=== PATIENT | male | born 1985 | race Caucasian/White ===

== ENCOUNTER 2023-02-03 16:10 | Emergency (ER) | payer SELFPAY ==
[2023-02-03] VITALS (8 sets, daily range): BP systolic 128–150; BP diastolic 71–90; PULSE 50–62; RESP 12–18; TEMP 36.3; O2SAT 97–100
--- NOTE | ~2023-02-03 | CT_ITS ---
EXAMINATION: CT abdomen pelvis w con DATE: 02/03/2023 18:16 INDICATION: RLQ/RUQ abd pain, N/V, leukocytosis TECHNIQUE: Computed tomography (CT) of the abdomen and pelvis was performed with 100 mL Omnipaque-350 intravenous contrast. Automated exposure control and iterative reconstruction technique were employe d. The dose-length product was 1470.12 mGy-cm. COMPARISON: None. FINDINGS: Lower thorax: Unremarkable Liver: Normal. Biliary/Gallbladder: Gallbladder is normal. No bile duct dilation. Pancreas: No mass or duct dilation. Spleen: Normal. Adrenals:No mass. Kidneys: No mass, stone, or hydronephrosis. GI tract: No small or large bowel dilation. Colonic submucosal fat as can be seen with chronic IBD, o besity, chemotherapy treatment, and celiac disease. Normal appendix. Mild diverticulosis without div erticulitis. Mesentery/Peritoneum: No ascites, mass, or free air. Retroperitoneum: No mass. Pelvis: Pelvic organs are within normal limits. Soft Tissues: Soft tissues and body wall unremarkable. Bones: No acute osseous finding. IMPRESSION: No acute abdominopelvic process detected. Reviewed, dictated and finalized at location K.
[2023-02-03 16:37] LABS: Basophils Percent Auto 0.1 % (0.2-1.2); Hematocrit 49.4 % (42.0-52.0); Hemoglobin 16.7 g/dL (14.0-18.0); Immature Granulocyte Absolute 0.08 K/mm3 (0.00-0.031); Immature Granulocyte Percent A 0.5 % (0-0.5); Lymphocytes Absolute Auto 1.01 K/mm3 (0.9-3.2); Lymphocytes Percent Auto 6.2 % (18.3-44.2); Mean Corpuscular HGB Conc 33.8 g/dl (32-36); Mean Corpuscular Hemoglobin 31.5 pg (26-34); Mean Platelet Volume 11.8 fl (7.4-10.4); Monocytes Absolute Auto 0.3 K/mm3 (0.1-0.6); Monocytes Percent Auto 1.8 % (2.6-8.5); Neutrophils Absolute Auto 14.8 K/mm3 (1.3-6.7); Neutrophils Percent Auto 91.4 % (45.5-73.1); Platelet Count Result 249 k/mm3 (150-375); Red Blood Count 5.31 M/mm3 (4.6-6.20); White Blood Count 16.2 K/mm3 (4.5-10.0)
[2023-02-03 16:40] LABS: Appearance Urine Clear (Clear); Bacteria Urine None Seen /hpf; Bilirubin Urine Negative (Negative); Blood Urine Negative (Negative); Color Urine Yellow (Yellow); Glucose Urine UA Negative (Negative); Ketones Urine 1+ mg/dL (Negative); Leukocyte Esterase Ur Negative LEU/UL (Negative); Nitrate Urine Negative (Negative); Non Pathogenic Casts 0-2; Protein Urine 1+ mg/dL (Negative); RBC Urine 0-2 /hpf (0-2); Squamous Epithelial Cell Urine None seen /hpf (Few); WBC Urine 0-5 /hpf
[2023-02-03 16:43] LABS: Specific Grav Ur 1.036 (1.001-1.035)
[2023-02-03 16:44] LABS: Add Urine Microscopic? YES
[2023-02-03 16:57] LABS: Alanine Aminotransferase 56 U/L (6-50); Albumin Level 5.1 g/dL (3.5-5.1); Alkaline Phosphatase 74 U/L (38-126); Anion Gap 17 mmol/L (8-16); Aspartate Amino Transferase 31 U/L (17-59); Bilirubin,Total 0.7 mg/dL (0.2-1.3); Blood Urea Nitrogen 11 mg/dL (9-20); Calcium 9.8 mg/dL (8.4-10.2); Carbon Dioxide 21 mmol/L (22-30); Chloride 101 mmol/L (98-107); Estimated CRCL calculation 147 ml/min; Estimated Glomerular Filt Rate > 60; Glucose 138 mg/dL (65-110); Lipase 34 U/L (23-300); Potassium 4.4 mmol/L (3.4-5.0); Sodium 139 mmol/L (137-145)
--- NOTE | 2023-02-03 17:27 | PC.NURSE ---
pt off the floor at 1727 to get imaging done.
--- NOTE | 2023-02-03 17:40 | ED.NAVMDI ---
HPI - Nausea/Vomiting/Diarrhea General Chief complaint: Nausea/Vomiting/Diarrhea Stated complaint: Vomitting, abdominal pain Time Seen by Provider: 02/03/23 17:18 Source: patient Mode of arrival: ambulatory Limitations: no limitations History of Present Illness HPI Narrative: Patient is a 37 y/o male who presents to the ED with c/o abdominal pain. Patient reports he developed pain in his lower abdomen yesterday morning after waking up for work. He had a bowel movement and vomited twice and pain improved. Patient then woke up again this morning around 3:30 AM with recurrent pain in his lower abdomen. He states pain was more intense. He again had a bowel movement and began vomiting, but denied improvement in pain. He notes he vomited several times. Pain has been constant since then. He states pain initially felt lower in his abdomen, but is now more present in his mid and upper R sided abdomen. He was unable to take anything further for the pain d/t the vomiting. He also reports chills/sweats, denies known fever. Denies diarrhea, rectal bleeding, melena, urinary sx's. Related Data Allergies Allergy/AdvReac Type Severity Reaction Status Date / Time No Known Allergies Allergy Verified 02/03/23 17:50 Review of Systems Review of Systems: CONSTITUTIONAL: See HPI. CARDIOVASCULAR: Denies chest pain. RESPIRATORY: Denies dyspnea. GASTROINTESTINAL: See HPI. GENITOURINARY: Denies dysuria or hematuria. MUSCULOSKELETAL: Denies back pain, joint pain, or myalgia. NEUROLOGIC: Denies headache, numbness, or weakness. All systems reviewed & are unremarkable except as noted in HPI and below Exam Narrative: GENERAL: Uncomfortable appearing, obese with BMI of 34.4, non-toxic, in mild acute distress d/t pain. HEAD: Normocephalic, atraumatic. EYES: PERRLA, R strabismus. NECK: Supple. No adenopathy, no masses. RESPIRATORY: Airway patent, respirations nonlabored. Clear to auscultation bilaterally, no rales, rhonchi, wheezing. CARDIOVASCULAR: Regular rate and rhythm without murmurs, rubs, or gallops. Peripheral pulses 2+ and equal bilaterally. ABDOMINAL: Soft, TTP in RUQ, epigastric region, periumbilical region, RLQ. Nondistended, no hepatosplenomegaly. Normoactive BS. MUSCULOSKELETAL: Moves all extremities. Strength/ROM intact without gross deformities. SKIN: Warm, dry, normal color. No rashes. NEURO: A&O X3. Speech clear. Cranial nerves II-XII grossly intact. Steady gait. No ataxic movements. PSYCHIATRIC: Appropriate mood and affect. Normal interaction. Course Vital Signs Vital signs: Vital Signs Temperature 97.4 F L 02/03/23 16:20 Pulse Rate 50 L 02/03/23 16:20 Respiratory Rate 18 02/03/23 16:20 Blood Pressure 128/86 02/03/23 16:20 Pulse Oximetry 100 02/03/23 16:20 Oxygen Delivery Room Air 02/03/23 16:20 Temperature 97.4 F L 02/03/23 16:20 Pulse Rate 61 02/03/23 20:14 Respiratory Rate 12 02/03/23 20:14 Blood Pressure 132/72 02/03/23 20:14 Pulse Oximetry 99 02/03/23 20:14 Oxygen Delivery Room Air 02/03/23 17:44 MDM - Nausea/Vomiting/Diarrhea MDM Narrative Medical decision making narrative: Patient presented to ED with 2-day history of N/V and abdominal pain, initially lower, now extending to upper abdomen/RUQ/epigastric region. Vital stable upon arrival. Afebrile. CBC with leukocytosis of 16.2. Neutrophil predominance. No bandemia. CMP with bicarb slightly low at 21, anion gap of 17, stable kidney function, blood glucose 138. Patient without history of diabetes mellitus. Urine with 1+ketones, though likely related to dehydration as patient has been unable to keep anything down today. Urinalysis otherwise without signs of infection. CT scan of abdomen pelvis obtained and w/o acute findings. Patient was updated on lab and imaging findings. Given 2 L of fluid in the ED in addition to pain and nausea medicine. On reevaluation, patient feeling better but report heartburn/indigestion. EKG
[2023-02-03] MEDS: SODIUM CHLORIDE 0.9% IV 1,000 ML 999 ML IV CONT ×2 (17:55→20:11)
[2023-02-03] MEDS: ONDANSETRON INJ 4 MG/2 ML VIAL IV PUSH (17:55)
[2023-02-03] MEDS: MORPHINE SULFATE (*CRX) 4 MG/ML INJ IV PUSH (17:55)
--- NOTE | 2023-02-03 18:05 | PC.NURSE ---
pt off floor to CT @2829
--- NOTE | 2023-02-03 19:18 | ECG_ITS ---
Measurements Intervals Mcloud Rate: 55 P: 46 OR: 144 QRS: -28 QRSD: 102 T: 34 QT: 398 QTc: 381 Interpretive Statements SINUS BRADYCARDIA WITH SINUS ARRHYTHMIA INCOMPLETE RIGHT BUNDLE BRANCH BLOCK BASELINE ARTIFACT- I, II, III, AVR, AVL, AVF BORDERLINE ECG NO PREVIOUS ECG AVAILABLE FOR COMPARISON Electronically Signed On 02-04-2023 7:59:41 CDT by Armin Sapp D.O.
[2023-02-03] MEDS: BELLADONNA ALK/PHENOB ELIX 10 ML, MAG HYDROX/ALUMINUM HYD/SIMETH 30 ML, LIDOCAINE HCL 2... PO (20:11)
[2023-02-03] MEDS: PANTOPRAZOLE SODIUM IV 40 MG VIAL IV PUSH (20:11)
[2023-02-03 20:29] LABS: Troponin I < 0.012 ng/mL (0.000-0.034)
== END 2023-02-03 20:50 | disposition home or self-care (01) ==
PROVIDERS: Emergency Medicine; Emergency Provider Physician Assistant
DX: K29.00 Acute gastritis without bleeding (principal); R11.2 Nausea with vomiting, unspecified; R00.1 Bradycardia, unspecified
CPT/HCPCS: 36415; 74177; 80053; 81001; 83690; 84484; 85025; 93005; 96361; 96374; 96375; 99284; A9270; C9113; J2270; J2405; J7030; Q9967

== ENCOUNTER 2023-02-06 07:37 | Emergency (ER) | payer SELFPAY ==
--- NOTE | ~2023-02-06 | CT_ITS ---
EXAMINATION: CTA chest abdomen pelvis DATE: 02/06/2023 09:09 INDICATION: Abdominal pain radiating to the chest and back. Nausea and vomiting. TECHNIQUE: Computed tomographic angiography (CTA) of the chest, abdomen, and pelvis was performed wit h 100 mL Omnipaque-350 intravenous contrast. Automated exposure control and iterative reconstruction technique were employed. The dose-length product was 1606.26 mGy-cm. Maximum intensity projection 3D- reconstructions of the aorta and other arteries were constructed by the technologist on a separate wo rkstation. COMPARISON: CT abdomen and pelvis 02/03/2023 FINDINGS: CHEST CTA: The lungs demonstrate mild dependent atelectasis. No pleural effusion. The heart size is normal. No p ericardial effusion. Thoracic aorta is normal. There is mild thoracic spondylosis. ABDOMEN AND PELVIS CTA: The liver, gallbladder, spleen, pancreas, adrenal glands, and kidneys are normal. There is diverticul osis of the colon without evidence of diverticulitis. There are no dilated loops of bowel. The append ix is normal. Abdominal aorta is normal. There is no significant stenosis of celiac axis, superior me senteric artery, the renal arteries, or inferior mesenteric artery. There are no pathologically enlar ged lymph nodes. There is no free intraperitoneal fluid. There is mild lumbar spondylosis. There is a benign bone island in L1 vertebral body. IMPRESSION: 1. Normal aorta. Reviewed, dictated and finalized at location A. IMPRESSION: 1. Normal aorta.
[2023-02-06 07:40] VITALS: BP 150/98; PULSE 68; RESP 20; TEMP 36.2; O2SAT 100
[2023-02-06] MEDS: diphenhydrAMINE HCl INJ 50 MG/ML VIAL 25 MG IV PUSH (08:08)
[2023-02-06 08:09] LABS: Basophils Percent Auto 0.3 % (0.2-1.2); Eosinophils Absolute Auto 0.1 K/mm3 (0-0.3); Eosinophils Percent Auto 0.6 % (0-4.4); Hematocrit 46.9 % (42.0-52.0); Hemoglobin 16.1 g/dL (14.0-18.0); Immature Granulocyte Absolute 0.03 K/mm3 (0.00-0.031); Immature Granulocyte Percent A 0.3 % (0-0.5); Lymphocytes Absolute Auto 1.95 K/mm3 (0.9-3.2); Lymphocytes Percent Auto 17.9 % (18.3-44.2); Mean Corpuscular HGB Conc 34.3 g/dl (32-36); Mean Corpuscular Hemoglobin 31.4 pg (26-34); Mean Corpuscular Volume 91.6 fl (80-100); Mean Platelet Volume 11.8 fl (7.4-10.4); Monocytes Absolute Auto 0.8 K/mm3 (0.1-0.6); Monocytes Percent Auto 7.4 % (2.6-8.5); Neutrophils Percent Auto 73.5 % (45.5-73.1); Platelet Count Result 231 k/mm3 (150-375); Red Blood Count 5.12 M/mm3 (4.6-6.20); Red Cell Distribution Width 12.9 % (11.5-14.5); White Blood Count 10.9 K/mm3 (4.5-10.0)
[2023-02-06] MEDS: METOCLOPRAMIDE HCL INJ 10 MG/2 ML VIAL IV PUSH (08:09)
--- NOTE | 2023-02-06 08:27 | ED.ABDPAIN ---
HPI - Abdominal Pain General Chief Complaint: Abdominal Pain Stated Complaint: abd pain Time Seen by Provider: 02/06/23 07:39 History of Present Illness HPI narrative: Patient presenting with abdominal pain, he had a similar episode several days ago and had felt better for a few days, discharged with omeprazole and Zofran, however this morning woke up around 5 this morning for work and was having severe pain mostly in the periumbilical area that seems to radiate up to his chest, and a generalized feeling of weakness to the point where he felt like his legs were going to go out under him, with nausea. States he feels like he just cannot get quite comfortable. No focal numbness or weakness anywhere. States he has a family history of colon cancer. Related Data Allergies Allergy/AdvReac Type Severity Reaction Status Date / Time No Known Allergies Allergy Verified 02/06/23 07:45 Review of Systems Review of Systems: CONST: Malaise and generalized weakness HEENT: No sore throat C/V: No chest pain RESP: No cough GI: Reports abdominal pain, nausea : No dysuria. M/S: No joint pain. SKIN: No rash. NEURO: [No headache or focal numbness or weakness] PSYCH: Anxious Exam Narrative: EXAMINATION OF ORGAN SYSTEMS/BODY AREAS: Constitutional: Vital signs per nursing GENERAL: Appears quite anxious and uncomfortable in the bed HEAD: Normal with no signs of head trauma. EYES: EOMI, conjunctiva normal ENT: Hearing grossly intact LUNGS: Nonlabored breathing. HEART: [Regular rate and rhythm] ABD: [Soft], [very minimally tender to deep palpation] epigastric abdomen EXT: Normal range of motion, normal radial and DP pulses bilaterally SKIN: [No rashes or lesions.] NEURO: [Alert and oriented x 3. No gross focal sensory or strength deficits.] PSYCH: Anxious affect Course Vital Signs Vital signs: Vital Signs Temperature 97.2 F L 02/06/23 07:40 Pulse Rate 68 02/06/23 07:40 Respiratory Rate 20 02/06/23 07:40 Blood Pressure 150/98 H 02/06/23 07:40 Pulse Oximetry 100 02/06/23 07:40 Oxygen Delivery Room Air 02/06/23 07:40 Temperature 97.2 F L 02/06/23 07:40 Pulse Rate 69 02/06/23 12:03 Respiratory Rate 18 02/06/23 12:03 Blood Pressure 156/95 H 02/06/23 12:03 Pulse Oximetry 98 02/06/23 12:03 Oxygen Delivery Room Air 02/06/23 07:40 MDM - Abdominal Pain MDM Narrative Medical decision making narrative: Electronic medical record was reviewed. Patient presented to the ED with complaint of [abdominal pain and vomiting and generalized weakness]. Vitals [were within acceptable limits]. Physical exam revealed soft, minimal tenderness to palpation epigastric abdomen, and very anxious appearing patient, with no neurovascular deficits. Based on the patient's history and physical exam, my differential includes but is not limited to [gastritis, gastroenteritis, cholecystitis, pancreatitis, appendicitis, considered aortic catastrophe given his inability to lay still, as well as cannabinol hyperemesis, he did report that he had used marijuana yesterday for nausea and had felt better afterwards and that he does use it several times a week]. [IV access was established by nursing staff. Patient was given reglan, benadryl]. CBC, BMP, lipase, LFTs, bilirubin and alk phos were obtained. Labs were pertinent for white count very minimally elevated, otherwise normal labs and normal troponin. [Decision was made to obtain a CTA-chest/abdomen/pelvis to evaluate for acute abdominal process. Per radiology interpretation is unremarkable for acute intra-abdominal process.] On reevaluation, the patient states that they are feeling much better. There were no witnessed episodes of vomiting in the emergency department. They are not complaining of any new abdominal pain. Repeat examination did not show any significant guarding or rebound. No new tenderness. At this time I do not feel there is any further emergent treatment to be provi
[2023-02-06 08:33] LABS: Alanine Aminotransferase 39 U/L (6-50); Albumin Level 4.7 g/dL (3.5-5.1); Alkaline Phosphatase 73 U/L (38-126); Anion Gap 9 mmol/L (8-16); Aspartate Amino Transferase 25 U/L (17-59); Blood Urea Nitrogen 12 mg/dL (9-20); Calcium 9.3 mg/dL (8.4-10.2); Carbon Dioxide 25 mmol/L (22-30); Chloride 104 mmol/L (98-107); Estimated CRCL calculation 119 ml/min; Estimated Glomerular Filt Rate > 60; Glucose 107 mg/dL (65-110); Lipase 69 U/L (23-300); Potassium 4.3 mmol/L (3.4-5.0); Sodium 138 mmol/L (137-145)
[2023-02-06 08:44] LABS: Troponin I < 0.012 ng/mL (0.000-0.034)
[2023-02-06] MEDS: PANTOPRAZOLE SODIUM IV 40 MG VIAL IV PUSH (09:41)
[2023-02-06] MEDS: FAMOTIDINE 20 MG/2 ML VIAL IV PUSH (09:42)
[2023-02-06] MEDS: LACTATED RINGERS 1,000 ML 999 ML IV CONT (09:42)
[2023-02-06 10:00] VITALS: BP 140/93; PULSE 70; RESP 16; O2SAT 100
[2023-02-06 12:03] VITALS: BP 156/95; PULSE 69; RESP 18; O2SAT 98
== END 2023-02-06 12:05 | disposition home or self-care (01) ==
PROVIDERS: Emergency Provider Emergency Medicine
DX: R10.33 Periumbilical pain (principal); R11.2 Nausea with vomiting, unspecified
CPT/HCPCS: 36415; 71275; 74174; 80053; 83690; 84484; 85025; 96361; 96374; 96375; 99284; C9113; J1200; J2765; J7120; Q9967

== ENCOUNTER 2024-11-26 15:30 | Emergency (ER) | payer OTHER, SELFPAY ==
--- NOTE | ~2024-11-26 | CT_ITS ---
CT abdomen pelvis w con Ordering provider: Kulwant Alcazar MD History: 39 years Male with . diffuse abd pain . Comparison: None. Technique: CT abdomen and pelvis with IV and without oral contrast. Automated exposure control and it erative reconstruction technique were employed. The dose-length product was 1172.44 mGy-cm. 100 mL Om nipaque 350 was given IV. Findings: VISUALIZED LOWER CHEST: Dependent atelectatic changes. UPPER ABDOMINAL ORGANS: Liver: Hepatomegaly with fat infiltration. Gallbladder: Normal. Spleen: Normal. Stomach/duodenum: Normal. Pancreas: Normal. Adrenals: Normal. Kidneys: Normal. PELVIC ORGANS: The bladder is normal. BOWEL AND MESENTERY: Colon: Mild sigmoid diverticulosis without diverticulitis. Normal appendix. Small Bowel: Normal. No obstruction. Peritoneum/mesentery: No free air or free fluid. No mesenteric lymphadenopathy. RETROPERITONEUM: Normal aorta. No retroperitoneal lymphadenopathy. MUSCULOSKELETAL: Superficial soft tissues: The superficial soft tissues are normal. Bones: Normal spine. Sclerotic area seen in L1 on the right side. Follow-up advised. Bilateral sacroi liitis. IMPRESSION: 1. No evidence of appendicitis, diverticulitis or intestinal obstruction. 2. Hepatomegaly with fat infiltration. Reviewed, dictated and finalized at location A.
[2024-11-26 15:43] VITALS: BP 143/79; PULSE 61; RESP 18; TEMP 36.6; O2SAT 100
--- NOTE | 2024-11-26 16:34 | ED_ITS ---
HPI - Abdominal Pain General Chief Complaint: Abdominal Pain Stated Complaint: abd pain Time Seen by Provider: 11/26/24 16:10 History of Present Illness HPI narrative: 39-year-old male presenting to the emergency department for diffuse abdominal pain for 1 week associated with some nausea and emesis when pain gets severe. States that he has had episodes like this previously most recently several weeks ago that was short-lived. He was here in the hospital 2 years ago with very similar findings and got CT scans, CT angiography scan and ultimately had no acute process in the abdomen pelvis and was attributed to potential marijuana use. Patient does smoke marijuana but no other drug use. No trauma or injuries. No diarrhea, fever, chills, back pain, chest pain shortness a breath. He states that hot showers seem to help with pain which is consistent with potential marijuana/cannabis hyperemesis. Related Data Allergies Allergy/AdvReac Type Severity Reaction Status Date / Time No Known Allergies Allergy Verified 02/06/23 07:45 Review of Systems 2 Review of Systems: As reviewed above in HPI Exam 2 Narrative: GENERAL: Uncomfortable but not any distress, awake and answers questions appropriately HEAD: [Normocephalic, atraumatic.] EYES: [PERRLA and EOMI.] ENT: Nares clear, no rhinorrhea or epistaxis. Mucous membranes moist. NECK: Supple. CHEST: [Clear to auscultation. No respiratory distress.] HEART: [Regular rate and rhythm]. No murmur heard. [Normal peripheral pulses.] ABDOMEN: [Soft, nondistended], [nontender], [No rigidity or guarding] EXTREMITIES: Normal range of motion. [No edema.] SKIN: Warm, dry, no rash. NEURO: [No focal deficits]. Alert and oriented [x3.] PSYCH: [Normal mood and affect.] Course Vital Signs Vital signs: Vital Signs Temperature 36.6 C 11/26/24 15:43 Pulse Rate 61 11/26/24 15:43 Respiratory Rate 18 11/26/24 15:43 Blood Pressure 143/79 H 11/26/24 15:43 Pulse Oximetry 100 11/26/24 15:43 Oxygen Delivery Room Air 11/26/24 15:43 Temperature 36.6 C 11/26/24 15:43 Pulse Rate 54 L 11/26/24 16:44 Respiratory Rate 15 11/26/24 16:44 Blood Pressure 138/85 11/26/24 16:44 Pulse Oximetry 100 11/26/24 16:44 Oxygen Delivery Room Air 11/26/24 15:43 MDM - Abdominal Pain MDM Narrative Medical decision making narrative: 39-year-old male presenting with diffuse abdominal pain for a week. Associated nausea when pain gets severe but no diarrhea, fever, chills, chest pain, shortness a breath. Abdomen is soft and nondistended, no significant tenderness to palpation. No rebound guarding. No overlying skin changes. Patient states that hot showers help his abdominal pain which is consistent with his clinical history and previous presentations for suspected cannabinoid hyperemesis. He has normal vital signs with any tachycardia, fever or hypoxia and combined with a soft nontender abdomen suspicion for intra-abdominal process is very low however will have to exclude something like appendicitis, cholecystitis, diverticulitis, obstruction. Most likely patient has gastroenteritis versus gastritis versus cannabinoid hyperemesis. Lactated Ringer's for fluid resuscitation as well as medications including Toradol, Haldol and diphenhydramine for symptom control. Laboratory studies were ordered including CBC, CMP, urinalysis, lipase. CT scan of the abdomen pelvis with IV contrast was obtained for further delineation. Workup shows a slight leukocytosis of 13.3 but no anemia or platelet concerns. Chemistry panel is within normal limits, normal renal function, normal hepatic function. Normal glucose. Urinalysis shows trace ketones but no acute findings otherwise. No infection or blood. CT scan shows hepatomegaly and fatty liver but no acute findings such as appendicitis diverticulitis or intestinal obstruction. Otherwise unremarkable CT scan. Patient had improvement after medications. He will be discharged home at this time with prescriptions for Bentyl and Zofran as needed. Encouraged to stop smoking marijuana and to follow-up on outpatient basis with his primary care provider for further evaluations as needed. Medical Records Attestation: I reviewed the patient's medical records. Lab Data Attestation: I reviewed the patient's lab results. 11/26/24 16:36 11/26/24 16:36 Labs: Lab Results 11/26/24 Range/Units 16:36 WBC 13.3 H (4.5-10.0) K/mm3 RBC 5.02 (4.6-6.20) M/mm3 Hgb 15.4 (14.0-18.0) g/dL Hct 45.8 (42.0-52.0) % MCV 91.2 (80-100) fl MCH 30.7 (26-34) pg MCHC 33.6 (32-36) g/dl RDW 12.8 (11.5-14.5) % Plt Count 194 (150-375) k/mm3 MPV 11.5 H (7.4-10.4) fl Immature Gran % (Auto) 0.4 (0-0.5) % Neut % (Auto) 74.3 H (45.5-73.1) % Lymph % (Auto) 18.4 (18.3-44.2) % Sutter % (Auto) 6.5 (2.6-8.5) % Eos % (Auto) 0.2 (0-4.4) % Baso % (Auto) 0.2 (0.2-1.2) % Lymph # (Auto) 2.45 (0.9-3.2) K/mm3 Sutter # (Auto) 0.9 H (0.1-0.6) K/mm3 Eos # (Auto) 0.0 (0-0.3) K/mm3 Baso # (Auto) 0.0 (0.0-0.1) K/mm3 Abs Immat Gran (auto) 0.05 H (0.00-0.031) K/mm3 Absolute Neuts (auto) 9.9 H (1.3-6.7) K/mm3 Absolute Nucleated RBC 0.000 (0.0-0.012) K/mm3 Nucleated RBC % 0.0 (0.0-0.2) % Sodium 138 (137-145) mmol/L Potassium 4.2 (3.4-5.0) mmol/L Chloride 106 (98-107) mmol/L Carbon Dioxide 20 L (22-30) mmol/L Anion Gap 12 (4-12) mmol/L BUN 12 (9-20) mg/dL Creatinine 0.98 (0.7-1.3) mg/dL Estim Creat Clear Calc 119 ml/min Estimated GFR > 60 (59 - ) Glucose 99 (65-110) mg/dL Calcium 9.9 (8.4-10.2) mg/dL Total Bilirubin 0.8 (0.2-1.3) mg/dL AST 28 (17-59) U/L ALT 50 (6-50) U/L Alkaline Phosphatase 65 (38-126) U/L Total Protein 7.0 (6.3-8.2) g/dL Albumin 4.7 (3.5-5.1) g/dL Lipase 54 (23-300) U/L Urine Color Yellow (Yellow) Urine Appearance Clear (Clear) Urine pH 7.0 (5.0-9.0) Ur Specific [place] 1.018 (1.001-1.035) Urine Protein Negative (Negative) mg/dL Urine Glucose (UA) Negative (Negative) mg/dL Urine Ketones Trace H (Negative) mg/dL Ur Blood (Man) Negative (Negative) Urine Nitrate Negative (Negative) Urine Bilirubin Negative (Negative) Urine Urobilinogen 0.2 (<2.0) mg/dL Leukocyte Esterase Rfl Negative (Negative) AMY/UL Imaging Data Attestation: I personally reviewed and interpreted this imaging study as follows: My impression: Impressions Abdomen/Pelvis CT 11/26/24 17:52 IMPRESSION: 1. No evidence of appendicitis, diverticulitis or intestinal obstruction. 2. Hepatomegaly with fat infiltration. Radiologist's impression: ITS Impressions Abdomen/Pelvis CT 11/26/24 17:52 IMPRESSION: 1. No evidence of appendicitis, diverticulitis or intestinal obstruction. 2. Hepatomegaly with fat infiltration. Discharge Plan Discharge Clinical Impression: Abdominal pain, Nausea & vomiting Patient Disposition: Home Condition: Stable Instructions: Antibiotic Form, Abdominal Pain (ED) Additional Instructions: All of your laboratory studies are unremarkable. Your CT scan does not show any causes for your abdominal pain and there are no acute findings. You do have some fatty infiltration of your liver which is a chronic change not related to your symptoms but does need to be monitored with your primary care provider. We will send you home with some symptom control medications. Refrain from smoking any marijuana for several weeks as this could potentiate and trigger these episodes of abdominal pain and nausea. Return with any emergent concerns. Patient Language: Egyptian Prescriptions: New dicyclomine 20 mg tablet 20 mg PO TID PRN (Reason: abdominal pain) Qty: 20 0RF ondansetron 4 mg tablet,disintegrating 4 mg PO Q8H PRN (Reason: nausea and vomiting) Qty: 10 0RF Follow-up/Referrals: PHYSICIAN,PRODUCTION STAFF WORKER [Primary Care Provider] - Time of Disposition: 18:20
[2024-11-26] MEDS: diphenhydrAMINE HCl INJ 50 MG/ML VIAL 25 MG IV PUSH (16:41)
[2024-11-26] MEDS: LACTATED RINGERS 1,000 ML 999 ML IV CONT (16:41)
[2024-11-26] MEDS: KETOROLAC 15 MG/ML VIAL (*BKC) IV PUSH (16:41)
[2024-11-26] MEDS: HALOPERIDOL LACTATE 5 MG/ML VIAL 2.5 MG IV PUSH (16:41)
[2024-11-26 16:44] VITALS: BP 138/85; PULSE 54; RESP 15; O2SAT 100
[2024-11-26 16:44] LABS: Basophils Percent Auto 0.2 % (0.2-1.2); Eosinophils Percent Auto 0.2 % (0-4.4); Hematocrit 45.8 % (42.0-52.0); Hemoglobin 15.4 g/dL (14.0-18.0); Immature Granulocyte Absolute 0.05 K/mm3 (0.00-0.031); Immature Granulocyte Percent A 0.4 % (0-0.5); Lymphocytes Absolute Auto 2.45 K/mm3 (0.9-3.2); Lymphocytes Percent Auto 18.4 % (18.3-44.2); Mean Corpuscular HGB Conc 33.6 g/dl (32-36); Mean Corpuscular Hemoglobin 30.7 pg (26-34); Mean Corpuscular Volume 91.2 fl (80-100); Mean Platelet Volume 11.5 fl (7.4-10.4); Monocytes Absolute Auto 0.9 K/mm3 (0.1-0.6); Monocytes Percent Auto 6.5 % (2.6-8.5); Neutrophils Absolute Auto 9.9 K/mm3 (1.3-6.7); Neutrophils Percent Auto 74.3 % (45.5-73.1); Platelet Count Result 194 k/mm3 (150-375); Red Blood Count 5.02 M/mm3 (4.6-6.20); Red Cell Distribution Width 12.8 % (11.5-14.5); White Blood Count 13.3 K/mm3 (4.5-10.0)
[2024-11-26 16:46] LABS: Add Urine Microscopic? NO; Appearance Urine Clear (Clear); Bilirubin Urine Negative (Negative); Blood Urine Negative (Negative); Color Urine Yellow (Yellow); Glucose Urine UA Negative (Negative); Ketones Urine Trace mg/dL (Negative); Leukocyte Esterase Ur Negative LEU/UL (Negative); Nitrate Urine Negative (Negative); Protein Urine Negative (Negative); Specific Grav Ur 1.018 (1.001-1.035); Urobilinogen Urine 0.2 mg/dL (<2.0)
[2024-11-26 16:56] LABS: Alanine Aminotransferase 50 U/L (6-50); Albumin Level 4.7 g/dL (3.5-5.1); Alkaline Phosphatase 65 U/L (38-126); Anion Gap 12 mmol/L (4-12); Aspartate Amino Transferase 28 U/L (17-59); Bilirubin,Total 0.8 mg/dL (0.2-1.3); Blood Urea Nitrogen 12 mg/dL (9-20); Calcium 9.9 mg/dL (8.4-10.2); Carbon Dioxide 20 mmol/L (22-30); Chloride 106 mmol/L (98-107); Estimated CRCL calculation 119 ml/min; Estimated Glomerular Filt Rate > 60; Glucose 99 mg/dL (65-110); Lipase 54 U/L (23-300); Potassium 4.2 mmol/L (3.4-5.0); Sodium 138 mmol/L (137-145)
[2024-11-26 19:10] VITALS: BP 141/98; PULSE 75; RESP 18; O2SAT 99
== END 2024-11-26 19:11 | disposition home or self-care (01) ==
PROVIDERS: Physician Assistant; Emergency Provider Student in an Organized Health Care Education/Training Program
DX: R10.9 Unspecified abdominal pain (principal); R11.2 Nausea with vomiting, unspecified
CPT/HCPCS: 36415; 74177; 80053; 81003; 83690; 85025; 96361; 96374; 96375; 99284; J1200; J1630; J1885; J7120; Q9967

== ENCOUNTER 2025-01-12 00:01 | Day surgery (SDC) | payer OTHER, SELFPAY ==
[2025-01-05 09:24] VITALS: BMI 32.5
[2025-01-12 11:20] VITALS: BP 128/77; PULSE 87; RESP 20; TEMP 36.9; O2SAT 100
--- NOTE | 2025-01-12 11:37 | P.PNAN_ITS ---
Anes - Initial Pre Proc Eval Procedure: Operation Date: 01/12/25 12:30 Proposed Procedures p EGD & Diagnostic Colonoscopy - Bakari Vera MD Date/Time: 01/12/25 11:37 Surgeon: Bakari Vera MD Pre Op Diagnosis: Abdominal pain and weight loss Patient Data Age: 39 Gender: M Height: 1.83 m Weight: 115.7 kg Last Vital Signs Temp 36.9 C 01/12/25 11:20 Pulse 87 01/12/25 11:20 Resp 20 01/12/25 11:20 BP 128/77 01/12/25 11:20 Pulse Ox 100 01/12/25 11:20 O2 Del Method Room Air 01/12/25 11:20 Allergies Allergy/AdvReac Type Severity Reaction Status Date / Time No Known Allergies Allergy Verified 01/12/25 11:19 Home Medications ?Medication ?Instructions ?Recorded ?Confirmed ?Type pantoprazole 40 mg tablet,delayed 40 mg PO DAILY 01/05/25 01/12/25 History release Patient hx anesthesia problems: none Family hx anesthesia problems: other (anesthesia shut down resp system?) Results Review: All pre-operative results and documents have been reviewed as part of the pre- operative evaluation. [facility] Social History Social History Smoking packs per day: 0.5 Smoking cigarettes per day: 10.0 Years smoked: 20 Smoking pack-years: 10.00 Smoking status: Current every day smoker Tobacco type: cigarettes Alcohol intake: never Substance use: current Substance use type: marijuana Living arrangements: with family Spiritual care concerns: No Anes - Eval Final PreProcedure Day of Procedure 01/12/25 11:37 Patient weight: obese Heart: regular rate and rhythm Lungs: decreased breath sounds Airway: Mallampati scale class 1 Neurological: alert and oriented Last oral intake: >/= 8 hours ASA classification: III Emergent: no Anesthetic plan: proceed Anesthesia type and monitoring: general GIVS and standard monitoring Results Review: All pre-operative results and documents have been reviewed as part of the pre- operative evaluation. Informed Consent: The patient's anesthetic plan and its attendant risks and benefits were discussed with the patient/family/POA. Questions were solicited and answers provided to the satisfaction of the patient/family/POA.
[2025-01-12] MEDS: LACTATED RINGERS 1,000 ML 150 ML IV CONT (11:38)
[2025-01-12] MEDS: SIMETHICONE ORAL SUSPENSION 20 MG/0.3 ML 30 ML BOTTLE 1.8 ML PO (11:39)
--- NOTE | 2025-01-12 12:45 | PM.IMHP ---
H&P: HPI History of Present Illness Date/Time: 01/12/25 12:45 Chief Complaint: Recurrent abdominal pain Narrative: this patient has been suffering from diffuse abdominal pain crises for the past year, not relieved by defecation, and not associated with rectal bleeding, tenesmus, urgency, weight loss or systemic symptoms. He is referred Review of Systems Review of Systems: All systems reviewed & are unremarkable except as noted in HPI and below PMFSH Social History Social History Smoking packs per day: 0.5 Smoking cigarettes per day: 10.0 Years smoked: 20 Smoking pack-years: 10.00 Smoking status: Current every day smoker Tobacco type: cigarettes Alcohol intake: never Substance use: current Substance use type: marijuana Living arrangements: with family Spiritual care concerns: No Meds Home Medications and Allergies Home Medications ?Medication ?Instructions ?Recorded ?Confirmed ?Type pantoprazole 40 mg tablet,delayed 40 mg PO DAILY 01/05/25 01/12/25 History release Allergies Allergy/AdvReac Type Severity Reaction Status Date / Time No Known Allergies Allergy Verified 01/12/25 11:19 Vital Signs Vital Signs - 24 hr 01/12/25 11:20 Temperature 98.4 F Pulse Rate 87 Respiratory Rate 20 Blood Pressure 128/77 Pulse Oximetry 100 Oxygen Delivery Room Air Exam Const: General: cooperative and healthy appearing Resp: Effort & Inspection: normal respiratory effort and able to speak in complete sentences Auscultation: clear to auscultation bilaterally Cardio: Rate: regular rate Rhythm: regular rhythm GI: Inspection: normal to inspection GI Palp: No No hepatosplenomegaly present Auscultation: normal bowel sounds Rectal Exam: deferred Skin: General skin exam: normal color Psych: Appearance: grossly normal Mental Status: mental status grossly normal Assessment and Plan Assessment and plan (1) Abdominal pain: Code(s): R10.9 - Unspecified abdominal pain Status: Acute Assessment and Plan: The patient is deemed a good candidate for the procedures. Consent signed. Will proceed.
[2025-01-12] MEDS: BENZOCAINE (*SP) 60 ML SPRAY CAN (HURRICAINE) 1 SPRAY MUCOUS MEM (12:49)
--- NOTE | 2025-01-12 13:01 | SUR.OPER ---
EGD ended 1255 colonoscopy started 1300
--- NOTE | 2025-01-12 13:13 | S_PTH ---
PATIENT: Haroldo Posada LOC: [facility] #:[id number] AGE/SX: 39/M ROOM: RE01/12/[address]: Bakari Vera MD : [id number] BED: DIS: 01/12/2025 SPEC #: [id number] RECD: 01/12/25 14:03 STATUS: GLORIA RECarlita #: [id number] ALTAF: 01/12/25 13:[address]: Bakari Vera DEPT: [facility] Surgical RECD BY: Wan Valdes ENTERED: 01/12/25 14:06 SP TYPE: Surgical OTHR DR: Miguel Angel Barba MD Tissues: A - Gastric Biopsy B - Gastric Biopsy C - Duodenal Biopsy D - Colon Polypectomy E - Colon Polypectomy F - Colon Polypectomy Procedures: Hematoxylin and Eosin Stain Gross and Microscopic Level 4
[2025-01-12 13:18] VITALS: BP 106/58; PULSE 75; RESP 14; O2SAT 97
[2025-01-12 13:28] VITALS: BP 110/60; PULSE 72; RESP 16; O2SAT 99
[2025-01-12 13:38] VITALS: BP 111/78; PULSE 72; RESP 20; O2SAT 99
== END 2025-01-12 14:00 | disposition home or self-care (01) ==
PROVIDERS: PCP Emergency Medicine; Referring Provider Emergency Medicine; Visit Provider Internal Medicine Gastroenterology
PROC: 0DJ08ZZ Inspection of Upper Intestinal Tract, Via Natural or Artificial Opening Endoscopic (ICD-10-PCS; CPT 45378; principal; 2025-01-12 12:30)
DX: K44.9 Diaphragmatic hernia without obstruction or gangrene (principal); K57.30 Diverticulosis of large intestine without perforation or abscess without bleeding; K29.50 Unspecified chronic gastritis without bleeding; D12.0 Benign neoplasm of cecum; D12.2 Benign neoplasm of ascending colon; D12.8 Benign neoplasm of rectum; K21.9 Gastro-esophageal reflux disease without esophagitis; F17.210 Nicotine dependence, cigarettes, uncomplicated; F12.90 Cannabis use, unspecified, uncomplicated; E66.9 Obesity, unspecified; Z68.34 Body mass index [BMI] 34.0-34.9, adult
CPT/HCPCS: 43239; 45385; 88305; J2003; J3010; J7120

== ENCOUNTER 2025-04-12 11:29 | Emergency (ER) | payer OTHER, SELFPAY ==
--- NOTE | ~2025-04-12 | CT_ITS ---
EXAMINATION: CT chest abdomen pelvis w con DATE: 04/12/2025 13:11 INDICATION: Left lower quadrant abdominal pain radiating to the chest TECHNIQUE: Computed tomography (CT) of the chest, abdomen, and pelvis was performed with 100 mL Omnipaque-350 intravenous contrast. Automated exposure control and iterative reconstruction technique were employed. The dose-length product was 1429.53 mGy-cm. COMPARISON: CT studies dated 12/06/2024 and 02/06/2023 FINDINGS: CHEST CT: 4 mm right lower lobe pulmonary nodule unchanged since 02/06/2023 consistent with a noncalcified granuloma. Lungs are otherwise clear with no pneumonia, pulmonary edema or pleural effusion. Heart size is normal. No pericardial effusion. Thoracic aorta is normal in caliber with no dissection. No pathologically enlarged thoracic lymphadenopathy. Mild thoracic spondylosis. ABDOMEN/PELVIS CT: 4 mm hypodense cyst at the cephalad aspect of the right hepatic lobe. Gallbladder, spleen, pancreas, bilateral adrenal glands and kidneys are normal. Mild diverticulosis along the descending and sigmoid colon without adjacent from trace stranding to suggest diverticulitis. Small bowel and appendix are normal. Bladder is normal. No free intraperitoneal gas or fluid. No pathologically enlarged abdominal or pelvic lymphadenopathy. 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 IMPRESSION: 1. No acute cardiopulmonary disease or acute intra-abdominal/pelvic process. Reviewed, dictated and finalized at location A.
[2025-04-12 11:40] VITALS: BP 148/102; PULSE 67; RESP 16; TEMP 36.6; O2SAT 98
[2025-04-12 12:20] LABS: Hematocrit 49.1 % (42.0-52.0); Hemoglobin 17.0 g/dL (14.0-18.0); Immature Granulocyte Percent A 0.6 % (0-0.5); Lymphocytes Absolute Auto 2.17 K/mm3 (0.9-3.2); Mean Corpuscular HGB Conc 34.6 g/dl (32-36); Mean Corpuscular Hemoglobin 31.9 pg (26-34); Mean Corpuscular Volume 92.1 fl (80-100); Nucleated Red Blood Cells Absolute Auto 0.000 K/mm3 (0.0-0.012); Nucleated Red Blood Cells Perc 0.0 % (0.0-0.2); Platelet Count Result 243 k/mm3 (150-375); Red Blood Count 5.33 M/mm3 (4.6-6.20); White Blood Count 15.8 K/mm3 (4.5-10.0)
[2025-04-12 12:38] LABS: Alanine Aminotransferase 61 U/L (6-50); Albumin Level 5.4 g/dL (3.5-5.1); Alkaline Phosphatase 70 U/L (38-126); Anion Gap 14 mmol/L (4-12); Aspartate Amino Transferase 42 U/L (17-59); Bilirubin,Total 1.7 mg/dL (0.2-1.3); Blood Urea Nitrogen 21 mg/dL (9-20); Calcium 9.7 mg/dL (8.4-10.2); Carbon Dioxide 22 mmol/L (22-30); Chloride 99 mmol/L (98-107); Estimated CRCL calculation 104 ml/min; Estimated Glomerular Filt Rate > 60; Glucose 118 mg/dL (65-110); Lipase 56 U/L (23-300); Potassium 3.7 mmol/L (3.4-5.0); Sodium 135 mmol/L (137-145); Total Protein 8.8 g/dL (6.3-8.2)
--- NOTE | 2025-04-12 12:55 | ED_ITS ---
HPI - Abdominal Pain General Chief Complaint: Abdominal Pain Stated Complaint: abd pain Time Seen by Provider: 04/12/25 12:02 History of Present Illness HPI narrative: This is a 39-year-old male with history of GERD, hiatal hernia who presents to the ED for abdominal pain. Patient states for the past 4 days he has been having left lower quadrant abdominal pain that radiates to his left upper quadrant and to his chest. He has had subjective fevers. He has had nausea and vomiting multiple times a day that has continued stomach contents. He saw his PCP today and was advised to come to the ED for further evaluation. No known sick contacts. Last normal bowel movement was today. Related Data Home Medications ?Medication ?Instructions ?Recorded ?Confirmed ?Last Taken ?Type pantoprazole 40 mg tablet,delayed 40 mg PO DAILY 01/0501/12/25 01/11/25 History release Allergies Allergy/AdvReac Type Severity Reaction Status Date / Time No Known Allergies Allergy Verified 04/12/25 11:41 Review of Systems 2 Review of Systems: Gen.: Denies fevers or chills Eyes: Denies eye pain or visual change ENT: Denies congestion Respiratory: Denies shortness of breath or cough CV: As per HPI GI: As per HPI denies burning, urgency, frequency or hematuria Musculoskeletal: Denies back pain or muscle pain Neuro: Denies numbness, tingling, weakness or focal weakness Skin: Denies rash Except as documented, all other systems reviewed and negative [facility] Social History Social History Smoking packs per day: 0.5 Smoking cigarettes per day: 10.0 Years smoked: 20 Smoking pack-years: 10.00 Smoking status: Current every day smoker Tobacco type: cigarettes Alcohol intake: never Substance use: current Substance use type: marijuana Living arrangements: with family Spiritual care concerns: No Exam 2 Narrative: APPEARANCE: No acute distress, nontoxic, resting in bed EYES: EOMI HEENT: Normocephalic, atraumatic, OMM RESPIRATORY: No respiratory distress Clear to auscultation bilaterally with no rhonchi wheezing or rales. CARDIOVASCULAR: Regular rate and rhythm without murmurs rubs or gallops. ABDOMINAL: Soft, epigastric, left upper quadrant tenderness to palpation without rebound or guarding. MUSCULOSKELETAl: Moves all extremities. No clubbing, cyanosis or edema. NEURO: Awake and alert. Following commands, speech normal, no focal deficits SKIN:: Warm, dry. No rashes lesions or abrasions PSYCHIATRIC: Normal affect/mood, Course Vital Signs Vital signs: Vital Signs Temperature 97.9 F 04/12/25 11:40 Pulse Rate 67 04/12/25 11:40 Respiratory Rate 16 04/12/25 11:40 Blood Pressure 148/102 H 04/12/25 11:40 Pulse Oximetry 98 04/12/25 11:40 Temperature 97.9 F 04/12/25 11:40 Pulse Rate 67 04/12/25 11:40 Respiratory Rate 16 04/12/25 11:40 Blood Pressure 148/102 H 04/12/25 11:40 Pulse Oximetry 98 04/12/25 11:40 MDM - Abdominal Pain MDM Narrative Medical decision making narrative: 39-year-old male who presented to the ED for abdominal pain. On initial evaluation, patient was in no acute distress afebrile, hemodynamically stable. He had mild left upper quadrant and epigastric tenderness to palpation. He had a leukocytosis of 15.8. CMP consistent with mild dehydration, suspect anion gap is due to a dehydration. CT abdomen/pelvis showed no acute process. Patient was given toward, Zofran, IV fluids. On re-evaluation, he did have improvement of symptoms. Suspect the patient does have a gastroenteritis causing his symptoms. He will be given a prescription for Zofran. He was advised follow-up with his PCP in the next week for re-evaluation. Patient was agreeable to this plan. Given strict return precautions. Differential Diagnosis Differential diagnosis: Likely abdominal pain, calculus of kidney, diverticulitis, gastroenteritis and pancreatitis Medical Records Attestation: I reviewed the patient's medical records. Lab Data Attestation: I reviewed the patient's lab results. 04/12/25 12:04 04/12/25 12:05 Labs: Lab Results 04/12/25 04/12/25 Range/Units 12:04 12:05 WBC 15.8 H (4.5-10.0) K/mm3 RBC 5.33 (4.6-6.20) M/mm3 Hgb 17.0 (14.0-18.0) g/dL Hct 49.1 (42.0-52.0) % MCV 92.1 (80-100) fl MCH 31.9 (26-34) pg MCHC 34.6 (32-36) g/dl RDW 12.6 (11.5-14.5) % Plt Count 243 (150-375) k/mm3 MPV 12.1 H (7.4-10.4) fl Immature Gran % (Auto) 0.6 H (0-0.5) % Neut % (Auto) 77.6 H (45.5-73.1) % Lymph % (Auto) 13.8 L (18.3-44.2) % [place] % (Auto) 7.7 (2.6-8.5) % Eos % (Auto) 0.1 (0-4.4) % Baso % (Auto) 0.2 (0.2-1.2) % Lymph # (Auto) 2.17 (0.9-3.2) K/mm3 [place] # (Auto) 1.2 H (0.1-0.6) K/mm3 Eos # (Auto) 0.0 (0-0.3) K/mm3 Baso # (Auto) 0.0 (0.0-0.1) K/mm3 Abs Immat Gran (auto) 0.09 H (0.00-0.031) K/mm3 Absolute Neuts (auto) 12.3 H (1.3-6.7) K/mm3 Absolute Nucleated RBC 0.000 (0.0-0.012) K/mm3 Nucleated RBC % 0.0 (0.0-0.2) % Sodium 135 L (137-145) mmol/L Potassium 3.7 (3.4-5.0) mmol/L Chloride 99 (98-107) mmol/L Carbon Dioxide 22 (22-30) mmol/L Anion Gap 14 H (4-12) mmol/L BUN 21 H (9-20) mg/dL Creatinine 1.13 (0.7-1.3) mg/dL Estim Creat Clear Calc 104 ml/min Estimated GFR > 60 (59 - ) Glucose 118 H (65-110) mg/dL Calcium 9.7 (8.4-10.2) mg/dL Total Bilirubin 1.7 H (0.2-1.3) mg/dL AST 42 (17-59) U/L ALT 61 H (6-50) U/L Alkaline Phosphatase 70 (38-126) U/L Total Protein 8.8 H (6.3-8.2) g/dL Albumin 5.4 H (3.5-5.1) g/dL Lipase 56 (23-300) U/L Imaging Data Attestation: I personally reviewed and interpreted this imaging study as follows: (I reviewed the radiologist's interpretation.) Radiologist's impression: ITS Impressions Chest/Abdomen/Pelvis CT 04/12/25 13:42 IMPRESSION: 1. No acute cardiopulmonary disease or acute intra-abdominal/pelvic process. Discharge Plan Discharge Clinical Impression: Gastroenteritis Patient Disposition: Home Condition: Stable Instructions: Antibiotic Form, Gastroenteritis (ED) Additional Instructions: You may take Tylenol and ibuprofen for your pain. Your even a short prescription for Zofran to take this as prescribed. Follow-up with the PCP in the next week for re-evaluation. Return the ED for any new or worsening symptoms. Patient Language: [place] Citizen Prescriptions: New ondansetron 4 mg tablet,disintegrating 4 mg PO Q8H PRN (Reason: nausea and vomiting) Qty: 14 0RF No Action pantoprazole 40 mg tablet,delayed release (DR/EC) 40 mg PO DAILY Follow-up/Referrals: Miguel Angel Barba MD [Primary Care Provider, Family Practice]
[2025-04-12] MEDS: SODIUM CHLORIDE 0.9% IV 1,000 ML 999 ML IV CONT (13:01)
[2025-04-12] MEDS: KETOROLAC 30 MG/ML VIAL (*BKC) IV PUSH (13:02)
[2025-04-12] MEDS: ONDANSETRON INJ 4 MG/2 ML VIAL IV PUSH (13:02)
== END 2025-04-12 14:29 | disposition home or self-care (01) ==
PROVIDERS: Nurse Practitioner Family; Emergency Provider Student in an Organized Health Care Education/Training Program; PCP Emergency Medicine
DX: K52.9 Noninfective gastroenteritis and colitis, unspecified (principal); F17.210 Nicotine dependence, cigarettes, uncomplicated
CPT/HCPCS: 36415; 71260; 74177; 80053; 83690; 85025; 96361; 96374; 96375; 99284; J1885; J2405; J7030; Q9967